=== PATIENT | male | born 1965 | race African-American/Black ===

== ENCOUNTER 2017-06-07 10:45 | Outpatient (CLI) | payer BC, SELFPAY ==
--- NOTE | 2017-06-07 12:06 | RAD ---
CHEST TWO VIEWS: History: Dyspnea. Comparison: 07-11-10 FINDINGS: Cardiac silhouette and pulmonary vasculature are unremarkable. Mediastinum is midline. There is no co nfluent airspace consolidation, pneumothorax, or pleural fluid apparent. IMPRESSION: No active cardiopulmonary abnormalities are demonstrated. POS: [facility]
== END 2017-06-07 10:46 | disposition home or self-care (01) ==
LOC: RAD 10:45
PROVIDERS: ATTEND Internal Medicine
DX: R06.00 Dyspnea, unspecified (principal)
CPT/HCPCS: 71046

== ENCOUNTER 2017-11-13 10:16 | Emergency (ER) | payer BC, SELFPAY | END 2017-11-13 10:46 | disposition home or self-care (01) | LOC: ERS 10:16 | DX: T16.2XXA Foreign body in left ear, initial encounter (principal); I10 Essential (primary) hypertension; Z79.899 Other long term (current) drug therapy | CPT/HCPCS: 69200 ==

== ENCOUNTER 2018-02-24 23:30 | Emergency (ER) | payer OTHER, SELFPAY ==
[2018-02-24] MEDS ORDERED: Ketorolac Tromethamine 30 MG/ML VIAL ONE (23:51)
== END 2018-02-25 00:24 | disposition home or self-care (01) ==
LOC: ERS 23:30
DX: M10.9 Gout, unspecified (principal); I10 Essential (primary) hypertension; Z79.899 Other long term (current) drug therapy
CPT/HCPCS: 96372; J1885

== ENCOUNTER 2018-08-04 10:17 | Emergency (ER) | payer BC, OTHER | END 2018-08-04 10:42 | disposition home or self-care (01) | LOC: ERS 10:17 | DX: M72.2 Plantar fascial fibromatosis (principal); Z79.899 Other long term (current) drug therapy | CPT/HCPCS: 99283 ==

== ENCOUNTER 2019-09-17 08:20 | Outpatient (CLI) | payer OTHER ==
--- NOTE | 2019-09-17 11:00 | MRI ---
MRI LEFT SHOULDER: Date: 09/17/2019 PROVIDED CLINICAL HISTORY: Left shoulder pain. FINDINGS: There is a full thickness, partial width tear involving the posterior distal supraspinatus tendon at the footplate with minimal retraction. There is high grade partial thickness undersurface tearing inv olving the anterior insertional fibers of the infraspinatus tendon. The subscapularis and teres minor tendons appear intact. The long head biceps tendon appears intact and normally located. The glenoid labrum and glenohumeral articular cartilage are suboptimally evaluated in the absence of joint distention but appear grossly normal. The amount of fluid within the glenohumeral joint is physiologic. There is greater than physiologic s ubacromial/subdeltoid bursal fluid. Acromioclavicular joint osteoarthrosis and acromial enthesophyte formation are noted. There is narrowing of the acromiohumeral interval to about 5.0 mm. Rotator cuff muscular volume appears preserved. No focal concerning regional marrow or muscular signa l abnormality apparent. IMPRESSION: 1. Full thickness, partial width supraspinatus tendon. 2. High grade partial thickness undersurface tear involving insertional infraspinatus tendon. 3. Acromioclavicular joint osteoarthrosis and narrowing of the acromiohumeral interval. POS: [facility]
== END 2019-09-17 08:21 | disposition home or self-care (01) ==
LOC: SCSMRI 08:20
PROVIDERS: ATTEND Family Medicine
DX: S49.92XD Unspecified injury of left shoulder and upper arm, subsequent encounter (principal); S46.012A Strain of muscle(s) and tendon(s) of the rotator cuff of left shoulder, initial encounter; M19.012 Primary osteoarthritis, left shoulder

== ENCOUNTER 2020-02-20 05:15 | Emergency (ER) | payer OTHER, SELFPAY ==
--- NOTE | 2020-02-20 08:05 | RAD ---
RADIOGRAPH LEFT ANKLE 3 VIEWS: DATE: 02/20/2020 HISTORY: 54-year-old male with acute traumatic left ankle pain FINDINGS: Ankle mortise is congruent. There is no evidence of fracture. There is no subluxation or dislocation. There is diffuse soft tissue swelling, especially laterally and anteriorly. There is an ossific small fragment just inferior to the tip of the medial malleolus, either old avulsion fracture fragmen t or accessory ossicle. IMPRESSION: No acute fracture.
== END 2020-02-20 06:19 | disposition home or self-care (01) ==
LOC: ERS 05:15
DX: S93.402A Sprain of unspecified ligament of left ankle, initial encounter (principal); Z79.899 Other long term (current) drug therapy; W18.00XA Striking against unspecified object with subsequent fall, initial encounter

== ENCOUNTER 2020-02-24 07:32 | Outpatient (CLI) | payer OTHER, SELFPAY ==
[2020-02-24 14:53] LABS: #Eosinphils 0.1 thou/uL (0.0-0.7); #Lymphocytes 1.5 thou/uL (1.20-3.40); #Monocytes 0.4 thou/uL (0.11-0.59); #Neutrophils 3.2 thou/uL (1.40-6.50); %Basophils 0.8 % (0.0-1.0); %Eosinophils 2.4 % (0.0-10.0); %Lymphocytes 28.9 % (21.0-51.0); %Monocytes 7.4 % (0.0-10.0); %Neutrophils 60.6 % (42.0-75.0); Hemoglobin 13.9 g/dL (14.0-18.0); Large Platelets SLIGHT; MDiff Complete? YES; Mean Corpuscular HGB CONC 33.5 g/dL (32.0-36.0); Mean Corpuscular Hemoglobin 31.3 pg (27.0-31.0); Mean Corpuscular Volume 93.4 fL (78.0-98.0); Mean Platelet Volume 12.3 fL (7.4-10.4); Platelet Count 173 thou/uL (130-400); Platelet Morphology Comment Appears Adequate; Polychromasia SLIGHT = 2-3 cells (100X) (0-2/hpf); RBC Distribution Width 13.5 % (11.5-14.5); Red Blood Cell (RBC) Count 4.45 mill/uL (4.70-6.10); White Blood Cell (WBC) Count 5.3 thou/uL (4.8-10.8)
[2020-02-24 15:11] LABS: Anion Gap 13 mmol/L (10-20); BUN (Urea Nitrogen) 23 mg/dL (8.4-25.7); Calc. Creatinine Clearance 0 mL/min (70-130); Calcium 9.4 mg/dL (7.8-10.44); Carbon Dioxide 31 mmol/L (22-29); Chloride 99 mmol/L (98-107); Estimated GFR-MDRD 83; Glucose 178 mg/dL (70-105); Potassium 3.4 mmol/L (3.5-5.1); Sodium 140 mmol/L (136-145)
--- NOTE | 2020-02-25 17:29 | EKG ---
Test Reason : PREOP Blood Pressure : / mmHG Vent. Rate : 083 BPM Atrial Rate : 083 BPM P-R Int : 164 ms QRS Dur : 090 ms QT Int : 410 ms P-R-T Axes : 053 -09 017 degrees QTc Int : 481 ms Normal sinus rhythm Moderate voltage criteria for LVH, may be normal variant Nonspecific T wave abnormality Prolonged QT Abnormal ECG Confirmed by DR. Roberto BLAKE ([id number]) on 02/25/2020 5:28:52 PM Referred By: JARRETT Confirmed By:DR. Roberto BLAKE
[2020-02-26 12:44] LABS: SARS-CoV-2 MS2 Positive; SARS-CoV-2 N Gene Negative; SARS-CoV-2 S Gene Negative; SARS-CoV-2 by NAA Not Detected (NotDetected); SARS-CoV-2 orf1ab Negative
== END 2020-02-24 07:33 | disposition home or self-care (01) ==
LOC: LABBT 07:32
PROVIDERS: ATTEND Orthopaedic Surgery
DX: Z01.818 Encounter for other preprocedural examination (principal); M75.102 Unspecified rotator cuff tear or rupture of left shoulder, not specified as traumatic; Z20.828 Contact with and (suspected) exposure to other viral communicable diseases
CPT/HCPCS: 80048; 85025; 87635; 93005; 93010; U0003

== ENCOUNTER 2020-02-27 05:54 | Day surgery (SDC) | payer OTHER ==
[2020-02-26 10:50] VITALS: BMI 34.8
[2020-02-27] MEDS ORDERED: Midazolam HCl 2 mg/2 ml Vial ONE (06:24)
[2020-02-27] MEDS ORDERED: Fentanyl 100 MCG/2 ML VIAL ONE (06:24)
[2020-02-27] MEDS ORDERED: Promethazine HCl 25 MG/ML VIAL IM PRN (07:30)
[2020-02-27] MEDS ORDERED: Ondansetron PF 4 MG/2 ML Vial IVP PRN (07:30)
[2020-02-27] MEDS ORDERED: Ropivacaine 0.2% 550 ML 550 ML NERVE BLCK SCH (07:30)
[2020-02-27] MEDS ORDERED: traMADol HCl 50 MG TAB PO PRN ×2 (07:30)
[2020-02-27] MEDS ORDERED: HYDROcodone/Acetaminophen 5/325 mg Tablet PO PRN ×2 (07:30)
[2020-02-27] MEDS ORDERED: Ketorolac Tromethamine 30 MG/ML VIAL IVP PRN (07:30)
[2020-02-27] MEDS ORDERED: Zolpidem Tartrate 5 MG TAB PO PRN (07:30)
[2020-02-27] MEDS ORDERED: Fentanyl 100 MCG/2 ML VIAL IV PRN (07:30)
[2020-02-27] MEDS ORDERED: SUGAMMADEX SODIUM 200 MG/2 ML VIAL ONE (09:07)
--- NOTE | 2020-02-27 10:31 | OP ---
DATE OF PROCEDURE: 02/27/2020 TITLE OF PROCEDURES: 1. Left shoulder arthroscopic decompression. 2. Arthroscopic distal clavicle resection. 3. Arthroscopic rotator cuff repair. ASSOCIATE DATA SCIENTIST: Viviana Posey PA-C BLOOD LOSS: Minimal. SPECIMENS: None. DRAINS: None. COMPLICATIONS: None. The assistant womens volleyball coach/co-surgeon was present through the entire procedure and was responsible for providing exposure, tissue retraction and any necessary limb or tissue manipulation required to obtain necessary reduction or hardware placement. The assistant womens volleyball coach/co-surgeon also provided bleeding control, tissue closure, and suturing in conjunction with the primary surgeon. DESCRIPTION OF PROCEDURE: The patient was taken to the operating room where general anesthesia was induced. The patient was placed in the right lateral decubitus position. Left arm was placed in 15 pounds of traction, prepped and draped in the usual sterile fashion. Scope was placed in the glenohumeral joint, which was free of disease other than a full-thickness rotator cuff tear. The scope was placed in the subacromial bursa. Bursectomy was performed. CA ligament was taken down. Anterior and inferior acromioplasty were performed. I resected enough of the distal clavicle using arthroscopic acromionizer nicol to pass an 8-mm nicol easily between the clavicle and the acromion and removed inferior spur as well. The rotator cuff tear was freshened with a shaver. The bone was freshened with the nicol. I placed 2 SwiveLock sutures with Arthrex tape on the medial row and passed these in a W type fashion through to a lateral row with a double row, very good tight compression fit of the rotator cuff against the freshened bleeding bone. Sutures were cut. Irrigation was performed. Ports were closed with nylon suture. Sterile dressings applied. Job ID: [id number]
[2020-02-27] MEDS ORDERED: HYDROcodone/Acetaminophen 5/325 mg Tablet ONE (11:12)
[2020-02-27] MEDS ORDERED: Glycopyrrolate 0.2 MG/ML 5 ML SYRINGE ONE (12:06)
[2020-02-27] MEDS ORDERED: Lidocaine 1% PF 5 ML VIAL ONE (12:06)
[2020-02-27] MEDS ORDERED: Ropivacaine 0.5% HCl/PF (150 MG/30 ML VIAL) ONE (12:06)
[2020-02-27] MEDS ORDERED: Ropivacaine 0.2% HCl/PF (40 MG/20 ML VIAL) ONE (12:06)
[2020-02-27] MEDS ORDERED: EPHEDRINE 25 MG/5 ML SYRINGE ONE (12:06)
[2020-02-27] MEDS ORDERED: Rocuronium Bromide 10 MG/ML (10ML VIAL) ONE (12:06)
[2020-02-27] MEDS ORDERED: PROPOFOL 200 MG/20 ML VIAL ONE (12:06)
[2020-02-27] MEDS ORDERED: Ondansetron PF 4 MG/2 ML Vial ONE (12:06)
== END 2020-02-27 12:08 | disposition home or self-care (01) ==
LOC: SDC 05:54
PROVIDERS: ATTEND Orthopaedic Surgery
PROC: 0RNK4ZZ Release Left Shoulder Joint, Percutaneous Endoscopic Approach (ICD-10-PCS; principal; 2020-02-27)
PROC: 0LQ24ZZ Repair Left Shoulder Tendon, Percutaneous Endoscopic Approach (ICD-10-PCS; principal; 2020-02-27)
PROC: 3E0T3BZ Introduction of Anesthetic Agent into Peripheral Nerves and Plexi, Percutaneous Approach (ICD-10-PCS; principal; 2020-02-27)
PROC: 0PBB4ZZ Excision of Left Clavicle, Percutaneous Endoscopic Approach (ICD-10-PCS; principal; 2020-02-27)
DX: S46.012A Strain of muscle(s) and tendon(s) of the rotator cuff of left shoulder, initial encounter (principal); I10 Essential (primary) hypertension; Z79.82 Long term (current) use of aspirin; Z79.899 Other long term (current) drug therapy; W01.0XXA Fall on same level from slipping, tripping and stumbling without subsequent striking against object, initial encounter; Y99.0 Civilian activity done for income or pay; G89.18 Other acute postprocedural pain
CPT/HCPCS: A4306; C1713; J0690; J2250; J2405; J2704; J2795; J3010

== ENCOUNTER 2021-03-12 03:18 | Emergency (ER) | payer SELFPAY ==
[2021-03-12] MEDS ORDERED: Ketorolac Tromethamine 30 MG/ML VIAL ONE (04:01)
== END 2021-03-12 05:05 | disposition home or self-care (01) ==
LOC: ERS 03:18
DX: M10.9 Gout, unspecified (principal); I10 Essential (primary) hypertension; Z79.899 Other long term (current) drug therapy
CPT/HCPCS: 96372; 99283; J1885

== ENCOUNTER 2021-08-09 23:16 | Inpatient (IN) | payer SELFPAY ==
[2021-08-09] MEDS ORDERED: Nitroglycerin 2% Ointment 1 INCH/1 GM Packet ONE (23:47)
[2021-08-10 00:14] LABS: ALT (SGPT) 14 U/L (8-55); AST (SGOT) 14 U/L (5-34); Albumin 4.2 g/dL (3.5-5.0); Alkaline Phosphatase 54 U/L (40-110); Anion Gap 11 mmol/L (10-20); BUN (Urea Nitrogen) 11 mg/dL (8.4-25.7); Bilirubin, Total 0.4 mg/dL (0.2-1.2); Calc. Creatinine Clearance 0 mL/min (70-130); Calcium 9.9 mg/dL (7.8-10.44); Carbon Dioxide 30 mmol/L (22-29); Chloride 103 mmol/L (98-107); Globulin 3.2 g/dL (2.4-3.5); Glucose 102 mg/dL (70-105); Potassium 3.2 mmol/L (3.5-5.1); Protein, Total 7.4 g/dL (6.0-8.3); Sodium 141 mmol/L (136-145)
[2021-08-10 00:16] LABS: Mean Corpuscular HGB CONC 32.5 g/dL (32.0-36.0); Mean Corpuscular Hemoglobin 30.3 pg (27.0-31.0); Mean Corpuscular Volume 93.2 fL (78.0-98.0); RBC Distribution Width 13.7 % (11.5-14.5); Red Blood Cell (RBC) Count 4.64 mill/uL (4.70-6.10); White Blood Cell (WBC) Count 6.3 thou/uL (4.8-10.8)
[2021-08-10] MEDS ORDERED: Aspirin Chewable 81 MG TAB ONE (00:23)
[2021-08-10] MEDS ORDERED: Furosemide 40 MG/4 ML VIAL ONE (00:25)
[2021-08-10] MEDS ORDERED: Aspirin 325 MG TAB ONE (00:25)
[2021-08-10 00:35] LABS: CKMB 2.2 ng/mL (0-6.6)
[2021-08-10] MEDS ORDERED: hydrALAZINE 20 MG/ML VIAL ONE (00:38)
[2021-08-10 01:13] LABS: #Basophils 0.1 thou/uL (0.0-0.2); #Eosinphils 0.1 thou/uL (0.0-0.7); #Lymphocytes 2.3 thou/uL (1.20-3.40); #Monocytes 0.5 thou/uL (0.11-0.59); #Neutrophils 3.3 thou/uL (1.40-6.50); %Basophils 0.9 % (0.0-1.0); %Eosinophils 1.8 % (0.0-10.0); %Lymphocytes 36.8 % (21.0-51.0); %Monocytes 7.8 % (0.0-10.0); %Neutrophils 52.7 % (42.0-75.0); Large Platelets SLIGHT; MDiff Complete? YES; Mean Platelet Volume 12.3 fL (7.4-10.4); Platelet Count 122 thou/uL (130-400)
[2021-08-10] MEDS ORDERED: Labetalol HCl 100 MG/20 ML VIAL ONE (01:21)
[2021-08-10] MEDS ORDERED: Labetalol HCl 100 MG/20 ML VIAL SLOW IVP PRN (02:43)
[2021-08-10] MEDS ORDERED: hydrALAZINE 20 MG/ML VIAL SLOW IVP PRN (02:43)
[2021-08-10] MEDS ORDERED: Ondansetron ODT 4 MG TAB PO PRN (02:44)
[2021-08-10] MEDS ORDERED: Acetaminophen 325 MG TAB PO PRN (02:44)
[2021-08-10] MEDS ORDERED: Senokot S 8.6-50 MG TAB PO PRN (02:44)
[2021-08-10] MEDS ORDERED: Ondansetron PF 4 MG/2 ML Vial IVP PRN (02:44)
[2021-08-10] MEDS ORDERED: Potassium Chloride 20 MEQ TAB PO SCH (03:00)
[2021-08-10 03:39] LABS: Troponin I 0.025 ng/mL (< 0.028)
[2021-08-10] MEDS ORDERED: Potassium Chloride 20 MEQ TAB ONE (04:16)
[2021-08-10 05:14] LABS: SARS-CoV-2 NAA Rapid Test Not Detected (NotDetected)
[2021-08-10 06:18] LABS: Anion Gap 12 mmol/L (10-20); BUN (Urea Nitrogen) 10 mg/dL (8.4-25.7); Calc. Creatinine Clearance 0 mL/min (70-130); Calcium 9.3 mg/dL (7.8-10.44); Carbon Dioxide 30 mmol/L (22-29); Chloride 102 mmol/L (98-107); Glucose 128 mg/dL (70-105); Potassium 3.2 mmol/L (3.5-5.1); Sodium 141 mmol/L (136-145)
[2021-08-10 06:20] LABS: Hemoglobin 15.2 g/dL (14.0-18.0); Mean Corpuscular HGB CONC 33.5 g/dL (32.0-36.0); Mean Corpuscular Hemoglobin 31.3 pg (27.0-31.0); Mean Corpuscular Volume 93.5 fL (78.0-98.0); RBC Distribution Width 13.6 % (11.5-14.5); Red Blood Cell (RBC) Count 4.84 mill/uL (4.70-6.10); White Blood Cell (WBC) Count 6.2 thou/uL (4.8-10.8)
[2021-08-10 06:22] LABS: Troponin I 0.026 ng/mL (< 0.028)
[2021-08-10 06:54] LABS: #Eosinphils 0.1 thou/uL (0.0-0.7); #Monocytes 0.5 thou/uL (0.11-0.59); #Neutrophils 3.6 thou/uL (1.40-6.50); %Basophils 0.3 % (0.0-1.0); %Eosinophils 1.8 % (0.0-10.0); %Lymphocytes 32.9 % (21.0-51.0); %Monocytes 7.9 % (0.0-10.0); %Neutrophils 57.2 % (42.0-75.0); Mean Platelet Volume 12.4 fL (7.4-10.4); Platelet Count 115 thou/uL (130-400)
[2021-08-10 07:58] LABS: Bacteria/HPF None Seen HPF (None Seen); Bilirubin Negative (Negative); Blood, Urine Negative (Negative); Clarity Turbid (Clear); Glucose, Urine (Dipstick) Normal (Negative); Ketone, Urine Negative (Negative); Leukocyte Negative Leu/uL (Negative); Nitrite Negative (Negative); Protein, Urine (Dipstick) 20 mg/dL (Neg-Trace); RBC/HPF 0-3 HPF (0-3); Specific Gravity, Urine 1.011 (1.002-1.036); Squamous Epithelial None Seen HPF (0-3); Urobilinogen Normal mg/dL (Less than 2); WBC/HPF 0-3 HPF (0-3); pH, Urine 7.5 (5.0-9.0)
[2021-08-10] MEDS ORDERED: Aspirin 81 mg Enteric Coated Tablet ONE (09:56)
[2021-08-10] MEDS ORDERED: Nitroglycerin 2% Ointment 1 INCH/1 GM Packet ONE (09:56)
[2021-08-10] MEDS: Aspirin 81 mg Enteric Coated Tablet PO SCH (10:03)
[2021-08-10] MEDS: NIFEdipine XL 60 MG TAB PO SCH ×2 (10:03→21:22)
[2021-08-10] MEDS: Nitroglycerin 2% Ointment 1 INCH/1 GM Packet TOP SCH ×2 (10:04→21:23)
[2021-08-10 20:01] VITALS: BMI 34.9
[2021-08-10] MEDS: cloNIDine 0.1 MG TAB PO SCH (21:22)
[2021-08-11 05:06] LABS: Anion Gap 14 mmol/L (10-20); BUN (Urea Nitrogen) 15 mg/dL (8.4-25.7); Calc. Creatinine Clearance 145 mL/min (70-130); Calcium 9.3 mg/dL (7.8-10.44); Carbon Dioxide 28 mmol/L (22-29); Chloride 103 mmol/L (98-107); Glucose 132 mg/dL (70-105); Potassium 3.1 mmol/L (3.5-5.1); Sodium 142 mmol/L (136-145)
[2021-08-11 05:21] LABS: #Eosinphils 0.1 thou/uL (0.0-0.7); #Lymphocytes 1.8 thou/uL (1.20-3.40); #Monocytes 0.6 thou/uL (0.11-0.59); #Neutrophils 4.5 thou/uL (1.40-6.50); %Basophils 0.2 % (0.0-1.0); %Eosinophils 1.7 % (0.0-10.0); %Lymphocytes 25.6 % (21.0-51.0); %Monocytes 8.7 % (0.0-10.0); %Neutrophils 63.8 % (42.0-75.0); Hemoglobin 14.7 g/dL (14.0-18.0); Large Platelets SLIGHT; MDiff Complete? YES; Mean Corpuscular HGB CONC 32.8 g/dL (32.0-36.0); Mean Corpuscular Volume 94.6 fL (78.0-98.0); Mean Platelet Volume 12.2 fL (7.4-10.4); Platelet Count 117 thou/uL (130-400); Platelet Morphology Comment Appears Decreased; RBC Distribution Width 13.7 % (11.5-14.5); Red Blood Cell (RBC) Count 4.75 mill/uL (4.70-6.10); White Blood Cell (WBC) Count 7.1 thou/uL (4.8-10.8)
[2021-08-11] MEDS ORDERED: Potassium Chloride 20 MEQ in Premix Bag 1 BAG IVPB SCH (07:15)
[2021-08-11] MEDS ORDERED: Potassium Chloride 20 MEQ TAB PO SCH ×2 (07:15→12:00)
[2021-08-11] MEDS: Aspirin 81 mg Enteric Coated Tablet PO SCH (08:36)
[2021-08-11] MEDS: NIFEdipine XL 60 MG TAB PO SCH ×2 (08:36→21:00)
[2021-08-11] MEDS: Nitroglycerin 2% Ointment 1 INCH/1 GM Packet TOP SCH (08:37)
[2021-08-11] MEDS: Potassium Chloride 10 MEQ in Premix Bag 1 BAG IVPB SCH (09:23)
[2021-08-11 13:31] LABS: Cardiac Risk 4.6 (Less than 4.5); Cholesterol 153 mg/dl (< 200 Desired); HDL Cholesterol 33 mg/dL (>60 Neg Risk); LDL Cholesterol, Calculated 57 mg/dL; Magnesium 2.1 mg/dL (1.6-2.6); Triglycerides 317 mg/dL (Less than 150)
[2021-08-11] MEDS ORDERED: Enoxaparin Sodium 40 MG/0.4 ML SYRINGE SC SCH (21:00)
[2021-08-11] MEDS: cloNIDine 0.1 MG TAB PO SCH (21:00)
[2021-08-11] MEDS: Metoprolol Tartrate 25 MG TAB PO SCH (21:00)
[2021-08-12] MEDS ORDERED: Colchicine 0.6 MG TAB PO SCH ×2 (02:15→09:00)
[2021-08-12] MEDS ORDERED: HYDROcodone/Acetaminophen 5/325 mg Tablet PO SCH (09:15)
[2021-08-12 13:16] VITALS: BP 135/87; TEMP 98.2
[2021-08-12] MEDS ORDERED: Metoprolol Tartrate 50 MG TAB PO SCH ×2 (14:00→21:00)
[2021-08-12] MEDS: NIFEdipine XL 60 MG TAB PO SCH (14:04)
[2021-08-12] MEDS: Aspirin 81 mg Enteric Coated Tablet PO SCH (14:04)
[2021-08-12] MEDS: Metoprolol Tartrate 25 MG TAB PO SCH (14:11)
== END 2021-08-12 15:41 | disposition home or self-care (01) | DRG 291 ==
LOC: ERS 23:16 → ERHOLD 08-10 01:58 → INTOOBSV 08-10 11:49 → OBSVTOIN 08-10 11:49 → 2SW 08-10 18:15 → OBSVTOIN 08-12 10:10
PROVIDERS: ADMIT Student in an Organized Health Care Education/Training Program; ATTEND Hospitalist
DX: I11.0 Hypertensive heart disease with heart failure (principal); I50.33 Acute on chronic diastolic (congestive) heart failure; I16.1 Hypertensive emergency; I47.2 Ventricular tachycardia; E66.01 Morbid (severe) obesity due to excess calories; Z20.822 Contact with and (suspected) exposure to COVID-19; E87.6 Hypokalemia; D69.6 Thrombocytopenia, unspecified; Z79.82 Long term (current) use of aspirin; Z79.899 Other long term (current) drug therapy; Z68.35 Body mass index [BMI] 35.0-35.9, adult
CPT/HCPCS: 36415; 71045; 78452; 80048; 80053; 80061; 81001; 82553; 83735; 83880; 84484; 84550; 85025; 93005; 93017; 93306; 96372; 96374; 96375; A9500; G0378; J0153; J0360; J1650; J1940; U0002

== ENCOUNTER 2022-08-16 12:17 | Emergency (ER) | payer OTHER, SELFPAY | END 2022-08-16 12:59 | disposition home or self-care (01) | LOC: ERS 12:17 | DX: S40.012A Contusion of left shoulder, initial encounter (principal); S30.0XXA Contusion of lower back and pelvis, initial encounter; V89.2XXA Person injured in unspecified motor-vehicle accident, traffic, initial encounter | CPT/HCPCS: 99283 ==

== ENCOUNTER 2023-04-16 08:15 | Emergency (ER) | payer SELFPAY ==
[2023-04-16] MEDS ORDERED: Naproxen 500 MG TAB ONE (09:28)
[2023-04-16] MEDS ORDERED: predniSONE 20 MG TAB ONE (09:28)
== END 2023-04-16 09:25 | disposition home or self-care (01) ==
LOC: ERS 08:15
DX: M10.9 Gout, unspecified (principal); I10 Essential (primary) hypertension
CPT/HCPCS: 99283; J7512